=== PATIENT | male | born 2000 | race Caucasian/White ===

== ENCOUNTER 2018-01-10 20:45 | Emergency (ER) | payer SELFPAY ==
[2018-01-10] MEDS ORDERED: DIPHTH/TETANUS/ACEL. PERTUSSIS IM ONLY ONE (20:55)
--- NOTE | 2018-01-10 21:09 | ER Report ---
History and Physical Time Seen By MD: 21:07 Hx. of Stated Complaint: PT LACERATED PALM OF RIGHT HAND ON FILI WIRE FENCE. HPI/ROS CHIEF COMPLAINT: Laceration to right palm HISTORY OF PRESENT ILLNESS: 17-year-old male states he was climbing over a fili wire fence and he suffered a laceration to his right palm. He reports no numbness or weakness in his hand or fingers. He states his tetanus status is unknown. He does not suspect a foreign body in the laceration. Allergies: Coded Allergies: amoxicillin (Verified Allergy, Intermediate, hives, 01/10/18) clavulanic acid (Verified Allergy, Intermediate, hives, 01/10/18) Home Meds No Active Prescriptions or Reported Meds Hx Substance Use Disorder: No Hx Alcohol Use: Yes (SOCIAL DRINKER) Constitutional Vital Sign - Last 24 Hours 01/10/18 01/10/18 20:51 21:44 Temp 98.4 Pulse 103 95 Resp 14 14 B/P (MAP) 128/86 118/78 (91) Pulse Ox 95 98 O2 Delivery Room Air Room Air Physical Exam General appearance: alert no distress Right hand: There is no significant swelling. There is no obvious deformity to the hand. There is moderate tenderness of the palm. 5 cm chevron shaped superficial laceration flap in the mid palm and a 1 cm skin avulsion on the thenar eminence. No foreign body noted Neurologic exam: The patient has normal sensation distal to the injury. Tendon function is intact. Vascular exam: Normal pulses and capillary refill in the fingers DIFFERENTIAL DIAGNOSIS: After history and physical exam differential diagnosis was considered for hand injury including contusion, fracture, ligamentous and tendon injuries. Medical Decision Making ED Course/Re-evaluation ED Course Patient has normal motor and sensory function of his right hand. No evidence of tendon injury, no foreign bodies seen. Lacerations were repaired. Patient's tetanus status was updated. Procedure Procedure: Laceration repair. 1st laceration: Verbal consent was obtained from the patient. The 5 cm laceration on the right palm was anesthetized in the usual fashion using 6 mL of 2% lidocaine with epinephrine injected subcutaneous. The wound was irrigated extensively with water and cleaned with soap, skin was cleaned with chlorhexidine, draped and explored to its base visually. There were no deep structures involved. No tendon injury was identified. The wound was repaired with 4-0 nylon, 6 simple interrupted sutures. The wound repair was simple. The procedure was performed by myself. 2nd laceration The 1 cm laceration on the right thenar eminence was anesthetized in the usual fashion using 1 mL of 2% lidocaine with epinephrine injected subcutaneous. The wound was cleaned, draped, skin was cleaned with chlorhexidine and explored to its base visually. There were no deep structures involved. No tendon injury was identified. The wound was repaired with 1 simple interrupted suture of 4-0 nylon. The wound repair was simple. The procedure was performed by myself. Decision to Disposition Date: January 10, 2018 Decision to Disposition Time: 21:34 Depart Departure Latest Vital Signs Vital Signs Date Time Temp Pulse Resp B/P (MAP) Pulse Ox O2 Delivery O2 Flow Rate FiO2 01/10/18 21:44 95 14 118/78 (91) 98 Room Air 01/10/18 20:51 98.4 Impression: Primary Impression: Laceration of right hand Condition: Improved Disposition: HOME OR SELF-CARE New Scripts No Active Prescriptions or Reported Meds Patient Instructions: Hand Laceration Additional Instructions: Return to the emergency department or go to [facility] removal in 7 days. Clean with soap and water regularly. Apply Neosporin twice daily. Return to the ER if signs of infection such as redness spreading up the arm or thick discharge are noted. Problem Qualifiers Primary Impression: Laceration of right hand Encounter type: initial encounter Foreign body presence: without foreign body Qualified Codes: S61.411A - Laceration without foreign body of right hand , initial encounter BAY SORENSON MD January 10, 2018 21:09
[2018-01-10 21:44] VITALS: BP 118/78
== END 2018-01-10 21:41 | disposition home or self-care (01) ==
LOC: ER 21:00
DX: S61.411A Laceration without foreign body of right hand, initial encounter (principal)
CPT/HCPCS: 90471; 90715; 99283